=== PATIENT | female | born 1965 ===

== ENCOUNTER 2018-07-08 23:50 | Emergency (ER) | payer SELFPAY ==
[2018-07-08 23:51] VITALS: BMI 52.7
[2018-07-08 23:57] VITALS: TEMP 98.2
[2018-07-09 01:01] LABS: SQUAMOUS EPITHIAL < 1 /hpf (0-5); URINE BILIRUBIN NEGATIVE (NEGATIVE); URINE BLOOD NEGATIVE (NEGATIVE); URINE CLARITY Clear (Clear); URINE COLOR Straw (YELLOW); URINE GLUCOSE (UA) 3+ mg/dL (Normal); URINE LEUKOCYTE ESTERASE NEG Leu/uL (Negative); URINE PROTEIN NEGATIVE (NEGATIVE); URINE UROBILINOGEN NORMAL mg/dL (0.2-1.0)
[2018-07-09 01:06] LABS: HCG,QUALITATIVE URINE NEGATIVE (NEGATIVE)
[2018-07-09] MEDS ORDERED: Sodium Chloride 0.9% 1,000 ML IV STA ×2 (02:05→03:03)
--- NOTE | 2018-07-09 02:05 | C.PDOC ---
History Of Present Illness 53 year old female with PMHx of diabetes presents to the ED complaining of vaginal itching and painful urination for 2 days. Denies any fever, nausea, vomiting, diarrhea, vaginal bleeding or any other associated symptoms. Time Seen by Provider: 07/08/18 23:59 Chief Complaint (Nursing): Female Genitourinary History Per: Patient History/Exam Limitations: no limitations Onset/Duration Of Symptoms: Days (2) Current Symptoms Are (Timing): Still Present Associated Symptoms: Urinary Symptoms. denies: Fever, Nausea, Vomiting, Diarrhea Past Medical History Reviewed: Historical Data, Nursing Documentation, Vital Signs Vital Signs: Last Vital Signs Temp 98.2 F 07/08/18 23:55 Pulse 84 07/08/18 23:55 Resp 16 07/08/18 23:55 BP 129/75 07/08/18 23:55 Pulse Ox 97 07/08/18 23:55 - Medical History PMH: Asthma, Diabetes, HTN, Hypercholesterolemia Denies: Chronic Kidney Disease Surgical History: Hernia Repair Family History: States: No Known Family Hx - Social History Hx Tobacco Use: No Hx Alcohol Use: No Hx Substance Use: No - Immunization History Hx Tetanus Toxoid Vaccination: No Hx Influenza Vaccination: No Hx Pneumococcal Vaccination: No Review Of Systems Except As Marked, All Systems Reviewed And Found Negative. Constitutional: Negative for: Fever, Chills Gastrointestinal: Negative for: Nausea, Vomiting, Abdominal Pain, Diarrhea Genitourinary: Positive for: Dysuria. Negative for: Vaginal Bleeding Physical Exam - Physical Exam Appears: Non-toxic Skin: Warm, Dry Head: Normacephalic Eye(s): bilateral: Normal Inspection Nose: Normal Oral Mucosa: Moist Neck: Normal ROM, Supple Chest: Symmetrical Cardiovascular: Rhythm Regular Respiratory: Normal Breath Sounds, No Rales, No Rhonchi, No Wheezing Gastrointestinal/Abdominal: Soft, No Tenderness Neurological/Psych: Oriented x3, Normal Speech Gait: Steady ED Course And Treatment - Laboratory Results Result Diagrams: 07/09/18 02:21 07/09/18 02:21 O2 Sat by Pulse Oximetry: 97 (RA) Pulse Ox Interpretation: Normal Progress Note: Urine and blood collected and sent to the lab for analysis. Blood sugar was high. Patient given IV fluids. On re-eval BS still elevated, was given Insulin IV and IV fluid. On re-eval, Bs is getting down. patient is stable to be d/c home. Metformin was increased to 1000 mg BID. Patient was instructed to f/u with her PMD within 1-2 days to re-adjust her diabetic medications. Patient was instructed to return to Ed immediately if she feels worse. Disposition - Disposition Disposition: HOME/ ROUTINE Disposition Time: 06:23 Condition: IMPROVED Additional Instructions: Follow up with PMD in Clinic within 1-2 days. Return to ED immediately if feel worse. 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 - Scribe Statement The provider has reviewed the documentation as recorded by the Scribkwame Murphy All medical record entries made by the Shravan were at my direction and personally dictated by me. I have reviewed the chart and agree that the record accurately reflects my personal performance of the history, physical exam, medical decision making, and the department course for this patient. I have also personally directed, reviewed, and agree with the discharge instructions and disposition.
[2018-07-09 02:26] LABS: BASO # 0.1 K/uL (0.0-0.2); BASO % 0.7 % (0.0-2.0); EOS # 0.3 K/uL (0.0-0.7); HEMOGLOBIN 15.1 g/dL (11.0-16.0); LYMPH # 3.6 K/uL (1.0-4.3); LYMPH % 38.7 % (20.0-40.0); MEAN CELL VOLUME 85.2 fL (81.0-99.0); MEAN CORPUSCULAR HGB CONC 34.1 g/dL (33.0-37.0); MEAN PLATELET VOLUME 8.3 fL (7.2-11.7); MONO # 0.6 K/uL (0.0-0.8); MONO % 6.3 % (0.0-10.0); NEUT # 4.8 K/uL (1.8-7.0); NEUT % 51.3 % (50.0-75.0); NRBC % 0.2 % (0.0-2.0); RBC 5.2 Mil/uL (3.80-5.20); WHITE BLOOD COUNT 9.4 K/uL (4.8-10.8)
[2018-07-09 02:38] LABS: ALB/GLOB RATIO 1.4 (1.0-2.1); ALBUMIN 4.8 g/dL (3.5-5.0); AST/SGOT 106 U/L (14-36); BLOOD UREA NITROGEN 14 mg/dL (7-17); CALCIUM 8.7 mg/dl (8.6-10.4); GFR NON-AFRICAN AMERICAN > 60
[2018-07-09 02:39] LABS: ALT/SGPT 104 U/L (9-52)
[2018-07-09 02:50] VITALS: RESP 18
[2018-07-09] MEDS ORDERED: (Novolin R) Insulin Human Regular 100 units/ml vial IVP ONE (04:20)
[2018-07-09] MEDS ORDERED: (Novolin R) Insulin Human Regular 100 units/ml vial ONE (04:37)
[2018-07-09 06:38] VITALS: BP 124/61; PULSE 77
[2018-07-09 06:41] VITALS: O2SAT 97
== END 2018-07-09 06:38 | disposition home or self-care (01) ==
LOC: C.ER 23:50
DX: E11.65 Type 2 diabetes mellitus with hyperglycemia (principal); N76.0 Acute vaginitis
CPT/HCPCS: 80053; 81001; 82948; 84703; 85025; 87086; 96361; 96374; 99284; J7030